=== PATIENT | female | born 1990 | race Caucasian/White ===

== ENCOUNTER → 2019-04-03 | Outpatient (CLI) | payer BC ==
[~2019-04-03] MED LIST: ALLEGRA ALLERGY60 MG PO; BIRTH CONTROL; CYMBALTA 60MG60 MG PO; DOXYCYCLINE 10100 MG PO; NORCO 325 MG-51 TAB PO; PROAIR HFA0.09 MG/AC IH; SINGULAIR 110 MG/TAB PO; TRI-LO-MARZIA1 EACH PO
== END ==
LOC: COL.RAD 09:28
DX: R10.11 Right upper quadrant pain (principal)

== ENCOUNTER 2019-04-15 16:12 | Emergency (ER) | payer BC ==
[~2019-04-15] VITALS: Ht 167.6 cm; Wt 87.7 kg
[2019-04-15 16:17] VITALS: TEMP 98.3
[2019-04-15 17:21] LABS: BASO % 0.3 % (0.0-2.0); EOS # 0.2 (0.0-0.7); EOS % 2.2 % (0-4.0); GRAN # 5.1 (1.4-6.5); GRAN % 57.2 % (42.2-75.2); HEMATOCRIT 45.3 % (37.0-47.0); HEMOGLOBIN 15.1 g/dl (12.5-16.0); LYMPH # 3.1 (1.2-3.4); LYMPH % 34.9 % (20.0-51.0); MEAN CELL VOLUME 89 fl (80.0-100.0); MEAN CORPUSCULAR HEMOGLOBIN 30 pg (27.0-31.0); MEAN CORPUSCULAR HGB CONC 33 g/dl (33.0-37.0); MEAN PLATELET VOLUME 10.4 fl (7.4-10.4); MONO # 0.5 (0.1-0.6); MONO % 5.2 % (1.7-9.3); PLATELET COUNT 252 K/mm3 (130-400); REDCELL DISTRIBUTION WIDTH-CV 11.9 % (11.5-14.5)
[2019-04-15 17:30] LABS: ALBUMIN 4.2 gm/dL (3.5-5.0); BILIRUBIN,TOTAL 0.4 mg/dL (0.0-1.0); CALCIUM 9.3 mg/dL (8.4-10.2); CREATININE, serum 1.08 (0.52-1.25); POTASSIUM 4.1 mmol/L (3.4-5.0); TOTAL PROTEIN 7.8 gm/dL (6.4-8.2)
[2019-04-15 17:30] LABS: COLLECTION METHOD CLEAN CATCH
[2019-04-15 18:04] LABS: MUCOUS Present /lpf; PH 5 (5-8); SQUAMOUS EPITHELIAL 0-2 /hpf; URINE APPEARANCE Clear; URINE BACTERIA None Seen /hpf; URINE BILIRUBIN Negative (NEGATIVE); URINE BLOOD Negative (NEGATIVE); URINE COLOR Yellow; URINE GLUCOSE Negative (NEGATIVE); URINE KETONE Negative (NEGATIVE); URINE LEUKOCYTE ESTERASE Negative (NEGATIVE); URINE NITRATE Negative (NEGATIVE); URINE PROTEIN(semi-quant) Negative (NEGATIVE); URINE RBC 0-2 /hpf; URINE UROBILINOGEN Negative (NEGATIVE)
[2019-04-15] MEDS ORDERED: NORCO 325 MG-51 TAB PO (19:04)
[2019-04-15] MEDS ORDERED: CARAFATE 1GM1 G PO (19:04)
[2019-04-15] MEDS ORDERED: ZOFRAN ODT4 MG PO (19:05)
[2019-04-15 19:35] VITALS: BP 111/80; PULSE 80
== END 2019-04-15 19:37 | disposition home or self-care (01) ==
LOC: COL.ER 16:12
PROVIDERS: Emergency Medicine
DX: R10.11 Right upper quadrant pain (principal); J45.909 Unspecified asthma, uncomplicated; F32.9 Major depressive disorder, single episode, unspecified; F41.9 Anxiety disorder, unspecified
CPT/HCPCS: J1885; J2405; J7030; Q9967

== ENCOUNTER → 2019-05-05 | Outpatient (CLI) | payer BC ==
[~2019-05-05] MED LIST changes: +CARAFATE 1GM1 G PO; +ZOFRAN ODT4 MG PO
== END ==
LOC: COL.RAD 06:54
DX: R10.11 Right upper quadrant pain (principal); R11.0 Nausea
CPT/HCPCS: A9537; J2805

== ENCOUNTER 2020-05-05 18:39 | Emergency (ER) | payer BC ==
[~2020-05-05] VITALS: Ht 162.6 cm; Wt 90.9 kg
[2020-05-05 18:59] VITALS: TEMP 97.8
[2020-05-05] MEDS ORDERED: ZOLOFT 25MG25 MG (19:43)
[2020-05-05] MEDS ORDERED: ZOLOFT 50MG50 MG PO (19:44)
[2020-05-05 19:57] LABS: BASO % 0.3 % (0.0-2.0); EOS # 0.2 (0.0-0.7); EOS % 1.1 % (0-4.0); GRAN # 11.3 (1.4-6.5); HEMATOCRIT 39.2 % (37.0-47.0); HEMOGLOBIN 13.4 g/dl (12.5-16.0); LYMPH # 3.5 (1.2-3.4); LYMPH % 22.3 % (20.0-51.0); MEAN CELL VOLUME 86 fl (80.0-100.0); MEAN CORPUSCULAR HEMOGLOBIN 30 pg (27.0-31.0); MEAN CORPUSCULAR HGB CONC 34 g/dl (33.0-37.0); MEAN PLATELET VOLUME 9.8 fl (7.4-10.4); MONO # 0.8 (0.1-0.6); PLATELET COUNT 310 K/mm3 (130-400); RED BLOOD COUNT 4.54 M/mm3 (4.10-5.30); REDCELL DISTRIBUTION WIDTH-CV 11.9 % (11.5-14.5)
[2020-05-05 20:12] LABS: ALBUMIN 4.2 gm/dL (3.5-5.0); BILIRUBIN,TOTAL 0.5 mg/dL (0.0-1.0); CALCIUM 9.1 mg/dL (8.4-10.2); CREATININE, serum 0.94 (0.52-1.25); POTASSIUM 3.6 mmol/L (3.4-5.0); TOTAL PROTEIN 7.7 gm/dL (6.4-8.2)
[2020-05-05 22:42] VITALS: BP 106/60; PULSE 83
[2020-05-06] MEDS ORDERED: NEXIUM 24HR20 M1 PO (15:51)
[2020-05-06] MEDS ORDERED: IBU600 MG PO (17:35)
== END 2020-05-05 22:42 | disposition home or self-care (01) ==
LOC: COL.ER 18:39
PROVIDERS: Emergency Medicine
DX: O03.4 Incomplete spontaneous abortion without complication (principal); Z3A.10 10 weeks gestation of pregnancy; Z88.0 Allergy status to penicillin; Z88.1 Allergy status to other antibiotic agents
CPT/HCPCS: J7030

== ENCOUNTER 2020-05-06 15:00 | Day surgery (SDC) | payer BC ==
[2020-05-06] VITALS (9 sets, daily range): BP systolic 95–127; BP diastolic 50–72; PULSE 54–85; TEMP 98.2–98.4
[~2020-05-06] VITALS: Ht 165.1 cm; Wt 91.4 kg
[~2020-05-06 15:00] MED LIST changes: +ZOLOFT 25MG25 MG; +ZOLOFT 50MG50 MG PO
[2020-05-06] MEDS ORDERED: NEXIUM 24HR20 M1 PO (15:51)
--- NOTE | 2020-05-06 15:53 | NUR ---
TO RM 7 AT 1515- CALL LIGHT IN REACH AT BEDSIDE.
[2020-05-06] MEDS ORDERED: IBU600 MG PO (17:35)
--- NOTE | 2020-05-06 17:35 | NUR ---
PT TO ROOM 221 AFTER DISCHARGE FROM OPERATING ROOM. AT SIDE. TRANSFERRED TO BED. PT CRYING UNCONTROLLABLY WANTING HER BABY AND WANTING TO GO HOME. ATTEMPTED TO CALM PT. LIGHTS TURNED DOWN AND QUIETLY DISCUSSED PLAN OF CARE IN ORDER FOR PT TO GO HOME. PT VERBALIZES UNDERSTANDING AND WANTS TO TRY TO GO TO SLEEP FOR A LITTLE BIT. ICE WATER GIVEN. HIREN PAD AND MESH UNDERWEAR IN PLACE. HIREN PAD WITH 25% DRAINAGE.
--- NOTE | 2020-05-06 17:50 | NUR ---
PT VERY DROWSY, GOING TO TRY TO GO TO SLEEP. REMAINS AT BEDSIDE. HIREN PAD DRAINAGE UNCHANGED AT 25%
--- NOTE | 2020-05-06 18:02 | NUR ---
AMOUNTS FOR IV, URINE, AND EBL FROM THE OPERATING ROOM VIA REPORT FROM JIMI MCCLAIN.
--- NOTE | 2020-05-06 18:05 | NUR ---
DRAINAGE REMAINS AT 25% OF PAD. PT MORE AWAKE AND ALERT
--- NOTE | 2020-05-06 21:00 | NUR ---
2100- IV TO SALINE LOCK. PT HAS BEEN SLEEPING AND NOW AWAKE AND ALERT, ORIENTED X3. PT ASSISTED TO BATHROOM. UNABLE TO VOID AT THIS TIME. LOCHIA NORMAL. PT PERFORMS PERICARE AND CLEAN PAD AND PANTIES PROVIDED. PT WILL ATTEMPT TO VOID AGAIN IN AN HOUR IF SHE DOESN'T FEEL THE NEED SOONER. PLAN OF CARE DISCUSSED AND QUESTIONS ANSWERED. NO FURTHER NEEDS AT THIS TIME.
--- NOTE | 2020-05-06 21:50 | NUR ---
2149- PT ABLE TO VOID 150ML WITHOUT DIFFICULTY. PT FEELS THAT HER BLADDER IS EMPTY. DENIES HEAVY VAGINAL BLEEDING, PAIN, OR NAUSEA/VOMITING. 2156- DR CORDERO UPDATED ON PT. STATES OK TO DISMISS ORDERED. 2199- INT DC'D CHARTED.
--- NOTE | 2020-05-06 22:30 | NUR ---
2230- DISMISSAL INSTRUCTIONS GIVEN AND PT VERBALIZES UNDERSTANDING. PT DISMISSED TO HOME ACCOMPANIED BY SPOUSE AND THIS NURSE.
== END 2020-05-06 22:30 | disposition home or self-care (01) ==
LOC: SDCO 15:00
DX: O02.1 Missed abortion (principal); K21.9 Gastro-esophageal reflux disease without esophagitis; G43.909 Migraine, unspecified, not intractable, without status migrainosus; J45.909 Unspecified asthma, uncomplicated; F90.9 Attention-deficit hyperactivity disorder, unspecified type; F32.9 Major depressive disorder, single episode, unspecified; F41.9 Anxiety disorder, unspecified; Z88.1 Allergy status to other antibiotic agents; Z88.0 Allergy status to penicillin
CPT/HCPCS: J1885; J2250; J2405; J2704; J3010; J7120

== ENCOUNTER 2022-05-09 14:47 | Day surgery (SDC) | payer BC ==
[~2022-05-09] VITALS: Ht 167.6 cm; Wt 94.5 kg
[~2022-05-09 14:47] MED LIST changes: +IBU600 MG PO; +NEXIUM 24HR20 M1 PO
[2022-05-09] MEDS ORDERED: PROZAC40 MG PO (15:30)
[2022-05-09] MEDS ORDERED: CONCERTA36 MG PO (15:31)
[2022-05-09] MEDS ORDERED: ABILIFY 10MG TA10 MG PO (15:31)
--- NOTE | 2022-05-09 15:45 | NUR ---
IV LR CONNECTED TO EXISTING IV SITE RIGHT HAND
[2022-05-09 16:17] VITALS: BP 126/76; PULSE 88; TEMP 98.7
[2022-05-09] MEDS ORDERED: NORCO 325 MG-51 TAB PO ×3 (16:50→18:31)
[2022-05-09] MEDS ORDERED: MOTRIN 600600 MG/TAB PO ×3 (16:50→18:31)
[2022-05-09 18:28] VITALS: BP 115/73; PULSE 88; TEMP 98
--- NOTE | 2022-05-09 19:13 | NUR ---
pt dismissed today to home, pt vss, tolerated po intake, pt educated on dismissal instructions/follow up instructions/medication instructions, pt ambulated to exit, no further concerns
== END 2022-05-09 19:14 | disposition home or self-care (01) ==
LOC: SDCO 14:47 → SURG 18:01 → SDCO 19:14
DX: K35.80 Unspecified acute appendicitis (principal)
CPT/HCPCS: OP; J0330; J0690; J1100; J2405; J2704; J3010